=== PATIENT | female | born 1995 | race Caucasian/White ===

== ENCOUNTER 2019-10-05 16:39 | Emergency (ER) | payer OTHER ==
[~2019-10-05] VITALS: Ht 170.2 cm; Wt 65.8 kg
[~2019-10-05 16:39] MED LIST: CIPROFLOXACIN500 M1 PO; DIFLUCAN150 MG PO; FLAGYL500 MG PO; NOHOMEMEDICATIONS; TRAMADOL 50 MG50 MG PO
[2019-10-05 16:53] VITALS: BP 124/72
== END 2019-10-05 19:14 | disposition left against medical advice (07) ==
LOC: M.ERS 16:39
DX: O26.891 Other specified pregnancy related conditions, first trimester (principal); R10.31 Right lower quadrant pain; O99.331 Smoking (tobacco) complicating pregnancy, first trimester; Z3A.09 9 weeks gestation of pregnancy; Z88.0 Allergy status to penicillin; Z88.8 Allergy status to other drugs, medicaments and biological substances; Z88.6 Allergy status to analgesic agent